=== PATIENT | male | born 1970 | race Caucasian/White ===

== ENCOUNTER 2020-02-23 16:37 | Emergency (ER) | payer OTHER ==
[~2020-02-23] VITALS: Ht 165.1 cm; Wt 59.0 kg
[~2020-02-23 16:37] MED LIST: LANTUS SUBQ
[2020-02-23 16:47] VITALS: BP 142/74
[2020-02-23] MEDS ORDERED: NACL 0.9% 2,000 ML IV ONE (16:57)
[2020-02-23 17:14] LABS: BASOPHILS # (AUTO) 0.1 K/uL (0.00-0.22); BASOPHILS % (AUTO) 0.5 % (0.0-2.0); EOSINOPHILS # (AUTO) 0.3 K/uL (0-0.4); EOSINOPHILS % (AUTO) 2.6 % (0.0-4.0); HEMOGLOBIN 13.2 g/dL (12.0-18.0); LYMPHOCYTES # (AUTO) 2.4 K/uL (2.0-11.5); LYMPHOCYTES % (AUTO) 19.6 % (20.5-51.1); MEAN CORPUSCULAR HEMOGLOBIN 29 pg (27-31); MEAN CORPUSCULAR HGB CONC 35 g/dL (33-37); MEAN CORPUSCULAR VOLUME 84.5 fL (80-94); MONOCYTES # (AUTO) 0.6 K/uL (0.8-1.0); MONOCYTES % (AUTO) 5.3 % (1.7-9.3); NEUTROPHILS # (AUTO) 8.7 K/uL (1.8-7.7); PLATELET COUNT (AUTO) 294 K/uL (140-450); RED CELL DISTRIBUTION WIDTH 12.2 % (11.6-13.7); WHITE BLOOD COUNT (AUTO) 12.2 K/uL (4.8-10.8)
[2020-02-23 17:35] LABS: ALBUMIN 3.5 g/dL (3.4-5.0); ANION GAP 14.8 (8-16); CARBON DIOXIDE 27.8 mmol/L (21-32); CREATININE 1.8 mg/dL (0.6-1.3); POTASSIUM 4.6 mmol/L (3.5-5.1); TOTAL BILIRUBIN 0.3 mg/dL (0.0-1.0)
--- NOTE | 2020-02-23 17:43 | NUR ---
49 YO MALE BIB DAUGHTER C/O GENERALIZED WEAKNESS & DIZZINESS X 2 WEEKS. BLOOD SUGAR HI AT THIS TIME. PMH: DM, CATARACTS
--- NOTE | 2020-02-23 18:37 | NUR ---
URINE COLLECTED AND PLACED IN DIRTY UTILITY
[2020-02-23] MEDS ORDERED: INSULIN REGULAR, HUMAN 100 UNIT/ML VIAL IVP ONE ×2 (19:00→21:15)
--- NOTE | 2020-02-23 19:16 | NUR ---
RECEIVED REPORT FROM AGUSTINA FOSTER FOR CONTINUED CARE
[2020-02-23 19:23] LABS: BARBITURATE, URINE NEGATIVE ng/ml (NEG <=200); BENZODIAZEPINE, URINE NEGATIVE ng/mL (NEG <=200); CANNABINOID, URINE NEGATIVE ng/mL (NEG <=50); COCAINE, URINE NEGATIVE ng/mL (NEG <=300); OPIATE, URINE NEGATIVE ng/mL (NEG <=2000); PHENCYCLIDINE SCREEN,URINE NEGATIVE ng/mL (NEG <=25)
[2020-02-23] MEDS ORDERED: NACL 0.9% 1,000 ML IV ONE ×2 (19:50→21:15)
[2020-02-23 22:25] VITALS: BP 146/93
--- NOTE | 2020-02-23 22:38 | NUR ---
Patient discharged with v/s stable. Written and verbal after care instructions given and explained. Patient verbalized understanding. Ambulatory with steady gait WITH USE OF WALKER. All questions addressed prior to discharge. Advised to follow up with PMD.
--- NOTE | 2020-02-24 09:03 | NUR ---
LATE ENTRY--CONFIRMED WITH RN END TIME OF 8744 02/23/20
== END 2020-02-23 22:25 | disposition home or self-care (01) ==
LOC: MED 16:37
DX: E11.65 Type 2 diabetes mellitus with hyperglycemia (principal)
CPT/HCPCS: 36415; 80053; 80305; 82948; 83690; 85025; 96361; 96374; 96376; 99285; G0482; J1815; J7030; 96375; 99284

== ENCOUNTER 2020-12-04 19:52 | Emergency (ER) | payer OTHER ==
[~2020-12-04] VITALS: Ht 162.6 cm; Wt 61.7 kg
[2020-12-04 20:15] VITALS: BP 134/90
--- NOTE | 2020-12-04 20:18 | NUR ---
TO LOBBY A/W BED AMBULATORY
--- NOTE | 2020-12-04 23:25 | NUR ---
PT AMBULATED TO BED 1
--- NOTE | 2020-12-04 23:50 | NUR ---
PATIENT ASSESSMENT COMPLETED BY ANGÉLICA, NO NURSING INTERVENTIONS REQUIRED AT THIS TIME.
[2020-12-04] MEDS ORDERED: AMOX-999 PO (23:59)
[2020-12-05 00:38] VITALS: BP 134/90
== END 2020-12-05 00:38 | disposition home or self-care (01) ==
LOC: MED 19:52
DX: K13.70 Unspecified lesions of oral mucosa (principal)
CPT/HCPCS: 99283